=== PATIENT | male | born 1995 | race Caucasian/White ===

== ENCOUNTER 2017-10-08 16:54 | Emergency (ER) | payer BC ==
--- NOTE | 2017-10-08 16:58 | ER Report ---
History and Physical Time Seen By MD: 16:57 HPI/ROS CHIEF COMPLAINT: Shortness of breath, swelling to lower extremities HISTORY OF PRESENT ILLNESS: 22-year-old male patient presents to emergency room with complaint of shortness breath and swelling to lower extremity is. Patient states he's been feeling short of breath for the past 3 weeks. He states his most noticeable with activity. He states when he goes upstairs he oftentimes wants to go take a nap. Patient states he was seen by [facility], he was referred here to the emergency room. He states he is not had any fevers, chills , nausea, vomiting or diarrhea. Patient states he is taking Mucinex for this with no improvement. Patient denies any past medical history. He states that he does have the sensation like it is difficult to exhale. Patient denies any chest pain. REVIEW OF SYSTEMS: Respiratory: Noted above Cardiovascular: No chest pain, no palpitations. Gastrointestinal: No vomiting, no abdominal pain. Musculoskeletal: No back pain. Allergies: Coded Allergies: Penicillins (Verified Allergy, Severe, "ANAPHLAXIS", 10/08/17) codeine (Verified Allergy, Intermediate, "SEVERE NAUSEA AND VOMITING", 05/17) Home Meds Active Scripts Prednisone (PREDNISONE) 20 Mg Tablet, 20 MG PO BID, #10 TAB Prov:JEMMATHANH FINANCE BROKER 10/08/17 Azithromycin 250 Mg Tab (AZITHROMYCIN 250 MG TAB) 250 Mg Tablet, 1 TAB PO QDAY, #6 TAB Take 2 tabs today and then 1 tab a day until gone. Prov:THANH EASTON 10/08/17 Past Medical/Surgical History Patient has a past medical history of migraines, pneumonia, fractures, OCD. Patient has surgical history of right hand surgery, epiglottis straightening, Reviewed Nurses Notes: Yes Constitutional Vital Sign - Last 24 Hours 10/08/17 10/08/17 10/08/17 10/08/17 16:59 16:59 17:09 17:24 Temp 98.2 Pulse 94 81 82 Resp 14 10 22 B/P (MAP) 157/104 157/104 (121) Pulse Ox 95 94 93 O2 Delivery Room Air 10/08/17 10/08/17 10/08/17 10/08/17 17:30 17:39 17:44 18:29 Pulse 72 79 74 Resp 19 12 20 B/P (MAP) 133/81 (98) Pulse Ox 95 95 93 10/08/17 10/08/17 10/08/17 18:30 18:44 18:49 Pulse 74 Resp 16 B/P (MAP) 128/81 (97) 127/83 (98) Pulse Ox 92 Intake and Output 10/08/17 10/08/17 10/09/17 15:00 23:00 07:00 Intake Total 1000 ml Balance 1000 ml Physical Exam General Appearance: The patient is alert, has no immediate need for airway protection and no current signs of toxicity. ENT: Panic membranes are pearly-waldrop, auditory canals are patent, mucous membranes are moist. Respiratory: Chest is non tender, lungs are clear to auscultation. Cardiac: regular rate and rhythm Gastrointestinal: Abdomen is soft and non tender, no masses, bowel sounds normal. Musculoskeletal: Neck: Neck is supple and non tender. Extremities have full range of motion and are non tender. Skin: No rashes or lesions. DIFFERENTIAL DIAGNOSIS: After history and physical exam differential diagnosis was considered for shortness of breath including but not limited to pulmonary infectious process, COPD, asthma, pulmonary embolus and congestive heart failure. Medical Decision Making Data Points Result Diagram: 10/08/17 1703 10/08/17 1703 Laboratory Hematology Test 10/08/17 17:03 Red Blood Count 6.11 M/uL (4.00-5.60) Mean Corpuscular Volume 80.2 fL (80.0-96.0) Mean Corpuscular Hemoglobin 28.3 pg (26.0-33.0) Mean Corpuscular Hemoglobin Concent 35.3 g/dL (32.0-36.0) Red Cell Distribution Width 13.0 % (11.5-14.5) Mean Platelet Volume 8.1 fL (7.2-11.1) Neutrophils (%) (Auto) 55.7 % (39.4-72.5) Lymphocytes (%) (Auto) 32.3 % (17.6-49.6) Monocytes (%) (Auto) 10.4 % (4.1-12.4) Eosinophils (%) (Auto) 1.0 % (0.4-6.7) Basophils (%) (Auto) 0.6 % (0.3-1.4) Nucleated RBC Relative Count (auto) 0.0 /100WBC Neutrophils # (Auto) 5.9 K/uL (2.0-7.4) Lymphocytes # (Auto) 3.4 K/uL (1.3-3.6) Monocytes # (Auto) 1.1 K/uL (0.3-1.0) Eosinophils # (Auto) 0.1 K/uL (0.0-0.5) Basophils # (Auto) 0.1 K/uL (0.0-0.1) Nucleated RBC Absolute Count (auto) 0.00 K/uL D-Dimer Quantitative (PE/DVT) < 0.27 ug/ml (0-0.50) Sodium Level 143 mmol/L (137-145) Potassium Level 3.8 mmol/L (3.5-5.0) Chloride Level 100 mmol/L (98-107) Carbon Dioxide Level 26 mmol/L (22-30) Blood Urea Nitrogen 15 mg/dl (9-21) Creatinine 1.10 mg/dl (0.66-1.25) Glomerular Filtration Rate Calc > 60.0 Random Glucose 94 mg/dl (75-110) Calcium Level 9.6 mg/dl (8.4-10.2) Total Bilirubin 0.5 mg/dl (0.2-1.3) Aspartate Amino Transf (AST/SGOT) 29 U/L (0-35) Alanine Aminotransferase (ALT/SGPT) 35 U/L (0-56) Alkaline Phosphatase 79 U/L (0-126) Troponin I < 0.012 ng/ml B-Type Natriuretic Peptide < 5 pg/ml (0-100) Total Protein 8.3 gm/dl (6.3-8.2) Albumin 4.8 g/dl (3.5-5.0) Chemistry Test 10/08/17 17:03 White Blood Count 10.6 k/uL (4.5-11.0) Red Blood Count 6.11 M/uL (4.00-5.60) Hemoglobin 17.3 g/dL (14.0-18.0) Hematocrit 49.0 % (42.0-52.0) Mean Corpuscular Volume 80.2 fL (80.0-96.0) Mean Corpuscular Hemoglobin 28.3 pg (26.0-33.0) Mean Corpuscular Hemoglobin Concent 35.3 g/dL (32.0-36.0) Red Cell Distribution Width 13.0 % (11.5-14.5) Platelet Count 320 K/uL (150-450) Mean Platelet Volume 8.1 fL (7.2-11.1) Neutrophils (%) (Auto) 55.7 % (39.4-72.5) Lymphocytes (%) (Auto) 32.3 % (17.6-49.6) Monocytes (%) (Auto) 10.4 % (4.1-12.4) Eosinophils (%) (Auto) 1.0 % (0.4-6.7) Basophils (%) (Auto) 0.6 % (0.3-1.4) Nucleated RBC Relative Count (auto) 0.0 /100WBC Neutrophils # (Auto) 5.9 K/uL (2.0-7.4) Lymphocytes # (Auto) 3.4 K/uL (1.3-3.6) Monocytes # (Auto) 1.1 K/uL (0.3-1.0) Eosinophils # (Auto) 0.1 K/uL (0.0-0.5) Basophils # (Auto) 0.1 K/uL (0.0-0.1) Nucleated RBC Absolute Count (auto) 0.00 K/uL D-Dimer Quantitative (PE/DVT) < 0.27 ug/ml (0-0.50) Glomerular Filtration Rate Calc > 60.0 Calcium Level 9.6 mg/dl (8.4-10.2) Total Bilirubin 0.5 mg/dl (0.2-1.3) Aspartate Amino Transf (AST/SGOT) 29 U/L (0-35) Alanine Aminotransferase (ALT/SGPT) 35 U/L (0-56) Alkaline Phosphatase 79 U/L (0-126) Troponin I < 0.012 ng/ml B-Type Natriuretic Peptide < 5 pg/ml (0-100) Total Protein 8.3 gm/dl (6.3-8.2) Albumin 4.8 g/dl (3.5-5.0) Coagulation Test 10/08/17 17:03 D-Dimer Quantitative (PE/DVT) < 0.27 ug/ml EKG/Imaging EKG Interpretation 12 lead EKG: Rhythm: normal sinus rhythm with sinus arrhythmia, ventricular rate of 77 bpm Stanton: normal QRS: normal ST segments: normal Imaging 2 VIEWS CHEST INDICATION: Respiratory distress. COMPARISON: None available FINDINGS: Cardiomediastinal silhouette and pulmonary vessels within normal limits. There is no focal infiltrate or lobar consolidation. There is no pneumothorax or pleural effusion. No nodule. Upper abdomen is unremarkable. No acute bony abnormality. IMPRESSION: 1. No acute cardiopulmonary process. Report Dictated By: Arash Raymundo at 10/08/2017 6:16 PM Report E-Signed By: Arash Raymundo at 10/08/2017 6:18 PM NECK SOFT TISSUE INDICATION: Respiratory distress. COMPARISON: None available FINDINGS: AP and lateral soft tissue neck. The epiglottis and aryepiglottic folds are normal. The airways patent. No radiopaque foreign body. Prevertebral soft tissues are normal. The remaining soft tissues are unremarkable. Lung apices are clear. Bony structures normal for age. IMPRESSION: Unremarkable exam. Report Dictated By: Arash Raymundo at 10/08/2017 6:18 PM Report E-Signed By: Arash Raymundo at 10/08/2017 6:19 PM ED Course/Re-evaluation ED Course Patient was admitted to exam room, history and physical were obtained. Differential diagnoses were considered. On examination patient did have a hoarse throat, however lungs are clear, heart was regular, abdomen was soft and nontender. A chest x-ray, soft tissues of the neck x-ray were done. A CBC, CMP, troponin, EKG were done. EKG showed a normal sinus rhythm, troponin was negative , CBC was unremarkable as was the CMP. I discussed the findings with the patient. We will go ahead and discharge him home at this time. I believe there are likely looking at a tonsillitis which is causing the hoarse voice. With this going on as well as has we will go ahead and treat him with antibiotics as well as a steroid. I discussed this with the patient who verbalized understanding and agreement with plan. Decision to Disposition Date: Oct 08, 2017 Decision to Disposition Time: 18:45 Depart Departure Latest Vital Signs Vital Signs Date Time Temp Pulse Resp B/P (MAP) Pulse Ox O2 Delivery O2 Flow Rate FiO2 10/08/17 18:49 127/83 (98) 10/08/17 18:44 74 16 92 10/08/17 16:59 98.2 Room Air Impression: Primary Impression: Laryngitis Condition: Improved Disposition: HOME OR SELF-CARE New Scripts Prednisone (PREDNISONE) 20 Mg Tablet 20 MG PO BID, #10 TAB Prov: THANH EASTON 10/08/17 Azithromycin 250 Mg Tab (AZITHROMYCIN 250 MG TAB) 250 Mg Tablet 1 TAB PO QDAY, #6 TAB Take 2 tabs today and then 1 tab a day until gone. Prov: THANH EASTON 10/08/17 Patient Instructions: Laryngitis (ED) Additional Instructions: Increase fluid intake. Get plenty of rest. Take the medication as prescribed. Follow up with [facility] in the next week. Return to the ER if condition worsens. Take Tylenol or Ibuprofen as needed for fever or pain. THANH EASTON Oct 08, 2017 16:58
[2017-10-08] MEDS ORDERED: NS(*) 0.9% 1000 ML BAG 1,000 ML IV ONE (17:06)
[2017-10-08 17:15] LABS: PLATELET COUNT, AUTOMATED 320 K/uL (150-450)
--- NOTE | 2017-10-08 17:41 | EKG ---
FACILITY: [facility] [place] PATIENT NAME: PARTHA THACKER : [id number] MR: [id number] V: [id number] EXAM DATE: ORDERING PHYSICIAN: THANH EASTON TECHNOLOGIST: BRAYDEN Reyes Reason : CP Blood Pressure : / mmHG Vent. Rate : 077 BPM Atrial Rate : 077 BPM P-R Int : 152 ms QRS Dur : 104 ms QT Int : 380 ms P-R-T Axes : 039 054 028 degrees QTc Int : 430 ms Normal sinus rhythm with sinus arrhythmia Normal ECG No previous ECGs available Confirmed by YAJAIRA OWUSU ([id number]) on 10/09/2017 6:32:46 AM Referred By: NELLIE Confirmed By:YAJAIRA OWUSU
--- NOTE | 2017-10-08 18:22 | RADIOLOGY IMAGING REPORT ---
FACILITY: [facility] PATIENT NAME: Guille Hua : 1995 MR: [id number] V: [id number] EXAM DATE: ORDERING PHYSICIAN: THANH EASTON TECHNOLOGIST: Location: [facility] [place] Patient: Guille Hua : 1995 Visit/Account:[id number] Date of Sevice: 10/08/2017 2 VIEWS CHEST INDICATION: Respiratory distress. COMPARISON: None available FINDINGS: Cardiomediastinal silhouette and pulmonary vessels within normal limits. There is no focal infiltrate or lobar consolidation. There is no pneumothorax or pleural effusion. No nodule. Upper abdomen is unremarkable. No acute bony abnormality. IMPRESSION: 1. No acute cardiopulmonary process. Report Dictated By: Arash Raymundo at 10/08/2017 6:16 PM Report E-Signed By: Arash Raymundo at 10/08/2017 6:18 PM WSN:[id number]
--- NOTE | 2017-10-08 18:23 | RADIOLOGY IMAGING REPORT ---
FACILITY: [facility] [place] PATIENT NAME: Guille Hua : 1995 MR: [id number] V: [id number] EXAM DATE: ORDERING PHYSICIAN: THANH EASTON TECHNOLOGIST: Location: [facility] - [place] Patient: Guille Hua : 1995 Visit/Account:[id number] Date of Sevice: 10/08/2017 NECK SOFT TISSUE INDICATION: Respiratory distress. COMPARISON: None available FINDINGS: AP and lateral soft tissue neck. The epiglottis and aryepiglottic folds are normal. The a irways patent. No radiopaque foreign body. Prevertebral soft tissues are normal. The remaining soft t issues are unremarkable. Lung apices are clear. Bony structures normal for age. IMPRESSION: Unremarkable exam. Report Dictated By: Arash Raymundo at 10/08/2017 6:18 PM Report E-Signed By: Arash Raymundo at 10/08/2017 6:19 PM WSN:[id number]
[2017-10-08] MEDS ORDERED: AZIT-18 PO (18:44)
[2017-10-08] MEDS ORDERED: PRED20TA6 PO (18:44)
[2017-10-08 18:49] VITALS: BP 127/83
== END 2017-10-08 18:58 | disposition home or self-care (01) ==
LOC: MERGE 16:59 → ER 16:59
DX: J04.0 Acute laryngitis (principal)
CPT/HCPCS: 70360; 71046; 83880; 84484; 85025; 85379; 93005; 96360; 99284; J7030; 82040; 82247; 82310; 82374; 82435; 82565; 82947; 84075; 84132; 84155; 84295; 84450; 84460; 84520

== ENCOUNTER → 2019-02-04 | Outpatient (CLI) | payer BC ==
[~2019-02-04] MED LIST: AZIT-18 PO; PRED20TA6 PO
[2019-02-04 11:23] LABS: PLATELET COUNT, AUTOMATED 336 K/uL (150-450)
== END ==
LOC: LAB 10:11
PROVIDERS: ATTEND Nurse Practitioner Family
DX: K92.1 Melena (principal); R19.7 Diarrhea, unspecified; R10.32 Left lower quadrant pain; K21.9 Gastro-esophageal reflux disease without esophagitis; R68.81 Early satiety
CPT/HCPCS: 36415; 82040; 82247; 82310; 82374; 82435; 82565; 82784; 82947; 83516; 83630; 83993; 84075; 84132; 84155; 84295; 84450; 84460; 84520; 85025; 86140; 87045; 87177; 87269; 87493

== ENCOUNTER → 2019-02-05 | Outpatient (CLI) | payer BC ==
[~2019-02-05] MED LIST changes: +HYDR25SU34 RC; +IOPAMIDOL 76% 100 ML INFUS BTL 100 ML ONE; +VANC125C4 PO
--- NOTE | 2019-02-05 15:40 | RADIOLOGY IMAGING REPORT ---
FACILITY: [facility] PATIENT NAME: Guille Hua : 1995 MR: [id number] V: [id number] EXAM DATE: ORDERING PHYSICIAN: WEI MCKEON TECHNOLOGIST: Location: [facility] Patient: Guille Hua : 1995 Visit/Account:[id number] Date of Sevice: 02/05/2019 CT ABDOMEN PELVIS W/ CON HISTORY: C. Difficile, bloody stools, diarrhea x1 week TECHNIQUE: Following administration of IV contrast contiguous axial images acquired through the abdom en/pelvis. Coronal and sagittal reformatting also performed.Dose Lowering Technique One of the following dose optimization techniques was utilized in the performance of this exam: Autom ated exposure control; adjustment of the mA and/or kV according to the patient's size; or use of an i terative reconstruction technique. Specific details can be referenced in the facility's radiology C T exam operational policy. CONTRAST: 75 mL Isovue-370 COMPARISON: None. FINDINGS: Visualized lung bases: Negative. Hepatobiliary: Negative. Spleen: Negative. Adrenals: Negative. Pancreas: Negative. Kidneys ureters or bladder: Negative. Genitalia: Negative. GI: There is no evidence of bowel wall thickening or bowel obstruction. The appendix is visualized and does not appear inflamed. The left-sided the colon appears decompressed. Vessels/spaces/nodes: There are multiple mesenteric lymph nodes in the right lower quadrant measurin g up to 1 x 1 cm Bones/soft tissues: There is a small umbilical hernia containing fat. There is mild disc space narr owing and mild bulging disc at L5-S1 Additional findings: None pertinent. IMPRESSION: The left-sided the colon appears decompressed. There is no evidence of bowel wall thickening or shai l obstruction. There multiple mesenteric lymph nodes the right lower quadrant measuring up to 1 x 1 cm. These could be reactive in nature. Report Dictated By: Ebony Moss MD at 02/05/2019 3:24 PM Report E-Signed By: Ebony Moss MD at 02/05/2019 3:30 PM WSN:[id number]
== END ==
LOC: CT 00:50
PROVIDERS: ATTEND Nurse Practitioner Family
DX: R59.0 Localized enlarged lymph nodes (principal)
CPT/HCPCS: 74177; Q9967

== ENCOUNTER 2019-02-18 03:03 | Day surgery (SDC) | payer BC ==
[~2019-02-18] VITALS: Ht 182.9 cm; Wt 111.1 kg
[~2019-02-18 03:03] MED LIST changes: -IOPAMIDOL 76% 100 ML INFUS BTL 100 ML ONE
[2019-02-18] MEDS ORDERED: LIDOCAINE MPF 1% 5 ML VIAL ONE (09:14)
[2019-02-18] MEDS ORDERED: PROPOFOL EMUL(*) 10MG/ML 20 ML 60 ML ONE (09:14)
[2019-02-18] MEDS ORDERED: GLYCOPYRROLATE 0.2MG/ML 1 ML INJ IVP ONE (09:50)
[2019-02-18] MEDS ORDERED: NORMOSOL R SOLN(*) 1000 ML BAG 1,000 ML IV PRN (12:00)
[2019-02-18] MEDS ORDERED: LIDOCAINE/SOD BICARB 8.4% SYR ID ONE (12:00)
[2019-02-18 12:04] VITALS: BP 141/86
[2019-02-18] MEDS ORDERED: PROPOFOL EMUL(*) 10MG/ML 20 ML 20 ML ONE (12:44)
[2019-02-18 12:49] VITALS: BP 114/88
[2019-02-18 13:00] VITALS: BP 110/89
[2019-02-18 13:30] VITALS: BP 120/77
[2019-02-18 13:31] VITALS: BP 114/71
[2019-02-18 13:35] VITALS: BP 129/89
== END 2019-02-18 13:50 | disposition home or self-care (01) ==
LOC: OR 03:03
PROVIDERS: ATTEND Internal Medicine Gastroenterology
DX: K20.9 Esophagitis, unspecified (principal); K29.70 Gastritis, unspecified, without bleeding; R19.7 Diarrhea, unspecified; K63.5 Polyp of colon; K64.9 Unspecified hemorrhoids
CPT/HCPCS: 00813; 43239; 45380; 88305; 88313; 88342; J2001; J2704; J3490